=== PATIENT | male | born 1970 | race Caucasian/White ===

== ENCOUNTER 2016-07-11 13:06 | Emergency (ER) | payer OTHER ==
[~2016-07-11] VITALS: Ht 160 cm; Wt 71.9 kg
[~2016-07-11 13:06] MED LIST: BUSP10 PO; CETI5SOL PO; CITA-48 PO; IBUP400T20 PO; OSEL75 PO
[2016-07-11 13:10] VITALS: BP 143/92; PULSE 87; RESP 18; TEMP 98.4; O2SAT 98
[2016-07-11] MEDS ORDERED: SODIUM CHLOR 0.9% 1000 ML INJ 1,000 ML IV SCH (13:29)
[2016-07-11] MEDS ORDERED: KETOROLAC TROMETHAMINE 30 MG/ML (IVP) VIAL IVP ONE (13:30)
[2016-07-11] MEDS ORDERED: PANTOPRAZOLE SODIUM 40 MG VIAL IVP ONE (13:30)
[2016-07-11] MEDS ORDERED: ONDANSETRON HCL 4 MG/2 ML VIAL IVP ONE (13:30)
[2016-07-11] MEDS ORDERED: SODIUM CHLORIDE 0.9% FLUSH 10 ML FLUSH IV FLUSH PRN (13:30)
[2016-07-11] MEDS ORDERED: [UNRECOGNIZED DRUG - OTHER] PO (13:32)
[2016-07-11] MEDS ORDERED: CITA40TA4 PO (13:32)
[2016-07-11] MEDS ORDERED: PANT40TA3 PO (13:32)
[2016-07-11] MEDS ORDERED: TOPI200T7 PO (13:32)
[2016-07-11] MEDS ORDERED: DICY10CA12 PO (13:32)
[2016-07-11] MEDS ORDERED: ZYRT10CA PO (13:32)
[2016-07-11] MEDS ORDERED: BUSP10TA PO (13:32)
[2016-07-11] MEDS ORDERED: GABA300C5 PO (13:32)
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
--- NOTE | 2016-07-11 13:50 | RADHPO ---
EXAM DATE/TIME: 07/11/2016 13:39 [facility] COMPARISON: CHEST PA & LAT, May 20, 2015, 18:25. INDICATIONS : Chest discomfort; spasms in back/chest for 1 month. MEDICAL HISTORY : None. SURGICAL HISTORY : None. ENCOUNTER: Initial ACUITY: 1 month PAIN SCORE: 5/10 LOCATION: Bilateral chest FINDINGS: Single frontal view of the chest demonstrates a normal-sized cardiac silhouette. No effusion, consoli dation, or pneumothorax is identified. The bones and soft tissues demonstrate no acute finding. CONCLUSION: No acute cardiopulmonary abnormality is identified. Yohannes Chau MD on July 11, 2016 at 13:46 Board Certified Radiologist. This report was verified electronically.
[2016-07-11] MEDS ORDERED: DIATRIZOATE MEGLUM/DIATRIZOATE SOD 9 ML CUP ONE (13:58)
[2016-07-11 14:03] LABS: AUTOMATED NEUTROPHIL # 5.2 TH/MM3 (1.8-7.7); BASOPHIL % 0.6 % (0.0-2.0); EOSINOPHIL # 0.2 TH/MM3 (0-0.4); EOSINOPHIL % 2.3 % (0.0-4.0); HEMATOCRIT 52.3 % (39.0-51.0); HEMO FLAGS DIFF FINAL; LYMPH % 23.3 % (9.0-44.0); LYMPHOCYTE # 1.7 TH/MM3 (1.0-4.8); MEAN CELL VOLUME 94.1 FL (80.0-100.0); MEAN CORPUSCULAR HEMOGLOBIN 29.9 PG (27.0-34.0); MEAN CORPUSCULAR HGB CONC 31.8 % (32.0-36.0); MONO % 4.4 % (0.0-8.0); NEUT % 69.4 % (16.0-70.0); PLATELET COUNT 242 TH/MM3 (150-450); RED BLOOD COUNT 5.55 MIL/MM3 (4.50-5.90); RED CELL DISTRIBUTION WIDTH 13.3 % (11.6-17.2); WHITE BLOOD COUNT 7.4 TH/MM3 (4.0-11.0)
[2016-07-11 14:06] LABS: BLOOD, URINE TRACE (NEG); GLUCOSE,URINE NEG (NEG); KETONE, URINE NEG (NEG); NITRITE,URINE NEG (NEG)
[2016-07-11 14:14] VITALS: O2SAT 98
[2016-07-11 14:15] LABS: CHLORIDE 109 MEQ/L (98-107); SODIUM (NA) 144 MEQ/L (136-145)
[2016-07-11 14:16] VITALS: BP 141/86; PULSE 58; RESP 18; O2SAT 98
[2016-07-11 14:17] LABS: METHOD OF COLLECTION CLEAN CATCH
[2016-07-11 14:18] LABS: ANION GAP 8 MEQ/L (5-15); BICARBONATE 27.4 MEQ/L (21.0-32.0); BLOOD UREA NITROGEN 25 MG/DL (7-18)
[2016-07-11 14:18] LABS: COMMENT (UR) CULT NOT INDICATED; CULTURE IF INDICATED CULT NOT INDICATED; RBC, URINE 0-3 /hpf (0-3); SQUAMOUS EPITHELIAL CELL URINE 0-5 /hpf (0-5); URINE COLOR YELLOW (YELLW/STRAW)
[2016-07-11 14:19] LABS: APTT (PATIENT) 25.9 SEC (24.3-30.1); INTERNATIONAL NORMALIZED RATIO 0.9 RATIO; PROTHROMBIN TIME - PATIENT 10.4 SEC (9.8-11.6)
[2016-07-11 14:21] LABS: ALT (GPT) 32 U/L (12-78); AST (GOT) 14 U/L (15-37); GLOMERULAR FILTRATION RATE 60 ML/MIN (>89)
[2016-07-11 14:23] LABS: TOTAL BILIRUBIN ADULT 0.1 MG/DL (0.2-1.0)
[2016-07-11 14:24] LABS: ALKALINE PHOSPHATASE 93 U/L (45-117)
[2016-07-11] MEDS ORDERED: IOHEXOL 350 MG/ML 10 ML VIAL (for RAD DIAG) IV ONE (15:05)
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
[2016-07-11 15:23] VITALS: BP 116/72; PULSE 60; RESP 18; O2SAT 99
[2016-07-11] MEDS ORDERED: ORPH100T99 PO (15:49)
--- NOTE | 2016-07-12 10:45 | EKG ---
Date Performed: 07/11/2016 Time Performed: 13:40:24 PTAGE: 45 years EKG: Sinus rhythm Inferior T wave changes are nonspecific Borderline ECG NO PREVIOUS TRACING DOCTOR: Monica Lujan Interpretating Date/Time 07/12/2016 10:43:27
== END 2016-07-11 16:00 | disposition home or self-care (01) ==
LOC: PHEFT 13:06
DX: M54.5 Low back pain (principal); M62.830 Muscle spasm of back; R10.9 Unspecified abdominal pain; K59.00 Constipation, unspecified; R94.31 Abnormal electrocardiogram [ECG] [EKG]; Z87.39 Personal history of other diseases of the musculoskeletal system and connective tissue; Z87.19 Personal history of other diseases of the digestive system; Z86.59 Personal history of other mental and behavioral disorders
CPT/HCPCS: 71010; 74177; 80053; 81001; 83605; 83690; 85025; 85610; 85730; 87040; 93005; 96361; 96374; 96375; 99284; C9113; J1885; J2405; J7030; Q9963; Q9967

== ENCOUNTER 2016-08-17 01:59 | Emergency (ER) | payer OTHER ==
[~2016-08-17] VITALS: Ht 162.6 cm; Wt 71.0 kg
[~2016-08-17 01:59] MED LIST changes: -BUSP10 PO; +BUSP10TA PO; -CETI5SOL PO; -CITA-48 PO; +CITA40TA4 PO; +DICY10CA12 PO; +GABA300C5 PO; -IBUP400T20 PO; +ORPH100T99 PO; -OSEL75 PO; +PANT40TA3 PO; +TOPI200T7 PO; +ZYRT10CA PO; +[UNRECOGNIZED DRUG - OTHER] PO
[2016-08-17 02:04] VITALS: BP 152/79; PULSE 110; RESP 25; TEMP 99.3; O2SAT 100
[2016-08-17] MEDS ORDERED: SODIUM CHLOR 0.9% 1000 ML INJ 1,000 ML IV SCH ×2 (02:15→03:12)
[2016-08-17] MEDS ORDERED: SODIUM CHLORIDE 0.9% FLUSH 10 ML FLUSH IV FLUSH PRN (02:15)
[2016-08-17] MEDS ORDERED: MORPHINE SULFATE 4 MG/ML INJ IV PUSH ONE (02:15)
[2016-08-17] MEDS ORDERED: ONDANSETRON HCL 4 MG/2 ML VIAL IVP ONE (02:15)
[2016-08-17] MEDS ORDERED: GABA400C5 PO (02:18)
[2016-08-17] MEDS ORDERED: TOPA25TA8 PO (02:18)
[2016-08-17] MEDS ORDERED: PANT20 PO (02:18)
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
--- NOTE | 2016-08-17 02:36 | RADRPT ---
EXAM DATE/TIME: 08/17/2016 02:31 [facility] COMPARISON: CHEST SINGLE AP, July 11, 2016, 13:39. INDICATIONS : Abdominal pain. MEDICAL HISTORY : None. SURGICAL HISTORY : None. ENCOUNTER: Initial ACUITY: 1 day PAIN SCORE: 10/10 LOCATION: Bilateral Abdomen FINDINGS: A single view of the chest demonstrates the lungs to be symmetrically aerated without evidence of mas s, infiltrate or effusion. The cardiomediastinal contours are unremarkable. Osseous structures are intact. No pneumoperitoneum CONCLUSION: No acute disease. Yohannes Sarah MD on August 17, 2016 at 2:34 Board Certified Radiologist. This report was verified electronically.
[2016-08-17 02:48] LABS: BASOPHIL # 0.1 TH/MM3 (0-0.2); BASOPHIL % 0.8 % (0.0-2.0); EOSINOPHIL # 0.2 TH/MM3 (0-0.4); EOSINOPHIL % 3.2 % (0.0-4.0); HEMATOCRIT 45.1 % (39.0-51.0); HEMO FLAGS DIFF FINAL; LYMPH % 23.4 % (9.0-44.0); LYMPHOCYTE # 1.8 TH/MM3 (1.0-4.8); MEAN CELL VOLUME 94.7 FL (80.0-100.0); MEAN CORPUSCULAR HEMOGLOBIN 31.9 PG (27.0-34.0); MEAN CORPUSCULAR HGB CONC 33.7 % (32.0-36.0); MONO % 6.2 % (0.0-8.0); NEUT % 66.4 % (16.0-70.0); PLATELET COUNT 185 TH/MM3 (150-450); RED BLOOD COUNT 4.76 MIL/MM3 (4.50-5.90); RED CELL DISTRIBUTION WIDTH 13.7 % (11.6-17.2); WHITE BLOOD COUNT 7.6 TH/MM3 (4.0-11.0)
[2016-08-17] MEDS ORDERED: IOHEXOL 350 MG/ML 10 ML VIAL (for RAD DIAG) IV ONE (02:48)
--- NOTE | 2016-08-17 02:57 | RADRPT ---
EXAM DATE/TIME: 08/17/2016 02:43 [place] COMPARISON: No previous studies available for comparison. INDICATIONS : Diffuse right sided abdomen pain with dyspnea. IV CONTRAST: 95 cc Omnipaque 350 (iohexol) IV ORAL CONTRAST: No oral contrast ingested. RADIATION DOSE: 7.30 CTDIvol (mGy) MEDICAL HISTORY : None SURGICAL HISTORY : None. ENCOUNTER: Initial ACUITY: 1 day PAIN SCALE: 10/10 LOCATION: Right abdomen TECHNIQUE: Volumetric scanning of the abdomen and pelvis was performed. Using automated exposure control and ad justment of the mA and/or kV according to patient size, radiation dose was kept as low as reasonably achievable to obtain optimal diagnostic quality images. FINDINGS: LOWER LUNGS: The visualized lower lungs are clear. LIVER: A 1 cm low density in segment is likely small cyst or hemangioma. No suspicious mass or biliary du ctal dilatation. Gallbladder is benign in appearance. SPLEEN: Normal size without lesion. PANCREAS: Within normal limits. KIDNEYS: Normal in size and shape. There is no mass, stone or hydronephrosis. ADRENAL GLANDS: Within normal limits. VASCULAR: There is no aortic aneurysm. BOWEL/MESENTERY: The stomach, small bowel, and colon demonstrate no acute abnormality. There is no free intraperitone al air or fluid. The appendix is seen and appears normal. ABDOMINAL WALL: Within normal limits. RETROPERITONEUM: There is no lymphadenopathy. BLADDER: No wall thickening or mass. REPRODUCTIVE: Within normal limits. INGUINAL: There is no lymphadenopathy or hernia. MUSCULOSKELETAL: Within normal limits for patient age. CONCLUSION: Small probably benign low density liver lesion. No acute CT findings in the abdomen or pelvis. Yohannes Sarah MD on August 17, 2016 at 2:51 Board Certified Radiologist. This report was verified electronically.
[2016-08-17 02:59] LABS: ALT (GPT) 47 U/L (12-78); ANION GAP 9 MEQ/L (5-15); AST (GOT) 28 U/L (15-37); BICARBONATE 26.2 MEQ/L (21.0-32.0); BLOOD UREA NITROGEN 17 MG/DL (7-18); CHLORIDE 107 MEQ/L (98-107); GLOMERULAR FILTRATION RATE 65 ML/MIN (>89); POTASSIUM 3.9 MEQ/L (3.5-5.1); SODIUM (NA) 142 MEQ/L (136-145)
[2016-08-17 03:02] LABS: ALKALINE PHOSPHATASE 114 U/L (45-117); CREATINE KINASE 138 U/L (39-308); TOTAL BILIRUBIN ADULT 0.3 MG/DL (0.2-1.0)
[2016-08-17] MEDS ORDERED: LIDOCAINE VISCOUS 2% SOLN 15 ML UDC PO ONE (03:15)
[2016-08-17] MEDS ORDERED: SODIUM CHLOR 0.9% 1000 ML INJ 1,000 ML IV ONE (03:15)
[2016-08-17] MEDS ORDERED: ALUMINUM/MAGNESIUM/SIMETH 30 ML CUP PO ONE (03:15)
[2016-08-17] MEDS ORDERED: KETOROLAC TROMETHAMINE 30 MG/ML (IVP) VIAL IV PUSH ONE (03:15)
[2016-08-17 04:35] VITALS: BP 153/82; PULSE 90; RESP 18; O2SAT 100
--- NOTE | 2016-08-17 11:27 | EKG ---
Date Performed: 08/17/2016 Time Performed: 02:01:12 PTAGE: 45 years EKG: Sinus rhythm BORDERLINE LEFT AXIS DEVIATION POSSIBLE LEFT VENTRICULAR HYPERTROPHY ABNORMAL ECG PREVIOUS TRACING : 07/11/2016 13.40 Compared to prior tracing no significant change DOCTOR: Agustin Medina Interpretating Date/Time 08/17/2016 11:26:22
== END 2016-08-17 06:33 | disposition home or self-care (01) ==
LOC: NEPE 01:59
DX: R10.13 Epigastric pain (principal); R10.11 Right upper quadrant pain; R07.89 Other chest pain; R06.02 Shortness of breath; R94.31 Abnormal electrocardiogram [ECG] [EKG]; Z87.39 Personal history of other diseases of the musculoskeletal system and connective tissue; Z86.59 Personal history of other mental and behavioral disorders; Z87.19 Personal history of other diseases of the digestive system
CPT/HCPCS: 71010; 74177; 80053; 82550; 83605; 83690; 84484; 85025; 93005; 96361; 96374; 99285; J1885; J7030; Q9967